=== PATIENT | male | born 1975 | race Caucasian/White ===

== ENCOUNTER 2018-05-15 13:50 | Day surgery (SDC) | payer OTHER ==
[2018-05-15] MEDS ORDERED: PROPOFOL 40 ML (14:15)
== END 2018-05-15 15:53 | disposition home or self-care (01) ==
LOC: GIL 13:50
DX: Z12.11 Encounter for screening for malignant neoplasm of colon (principal); D12.3 Benign neoplasm of transverse colon; K29.50 Unspecified chronic gastritis without bleeding; K64.8 Other hemorrhoids; K57.90 Diverticulosis of intestine, part unspecified, without perforation or abscess without bleeding
CPT/HCPCS: 43239; 88305; 88312

== ENCOUNTER 2018-09-04 16:09 | Emergency (ER) | payer OTHER | END 2018-09-04 17:45 | disposition home or self-care (01) | LOC: FTE 16:09 | DX: M54.6 Pain in thoracic spine (principal) | CPT/HCPCS: 93005; 99283-25 ==